=== PATIENT | female | born 1995 | race Caucasian/White ===

== ENCOUNTER 2017-07-03 16:30 | Emergency (ER) | payer OTHER ==
[~2017-07-03] VITALS: Ht 165.1 cm; Wt 90.7 kg
[~2017-07-03 16:30] MED LIST: PRENATAL + DHA1 EAC1 PO
[2017-07-03] MEDS ORDERED: IBUPROFEN200 M1 PO (16:42)
== END 2017-07-03 16:48 | disposition home or self-care (01) ==
LOC: ED 16:30
DX: Z00.8 Encounter for other general examination (principal)

== ENCOUNTER 2021-04-21 10:28 | Emergency (ER) | payer OTHER ==
[~2021-04-21] VITALS: Ht 165.1 cm; Wt 124.3 kg
[~2021-04-21 10:28] MED LIST changes: +IBUPROFEN200 M1 PO
[2021-04-21] MEDS ORDERED: AMOXICILLIN500 MG PO (10:38)
--- OUTSIDE RECORDS SUMMARY | 2021-04-21 10:38 | XMS ---
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 Guidelines Source: [facility] [place] Guidelines Date: 01/29/2020 Care Coordination: Currently seeking mental health services through [facility]. Please contact [facility] for any mental health concerns.\T\nbsp; [place] [phone] [place] [phone] Crisis Line [phone] E.D. VISIT COUNT (12 MO.) 1 [facility] TOTAL 1 NOTE: Visits indicate total known visits. ED/UCC VISIT TRACKING (12 MO.) 04/21/2021 10:28 [facility] [place] TYPE: Emergency COMPLAINT: - SKIN PROBLEM L ARM INPATIENT VISIT TRACKING (12 MO.) No inpatient visits to display in this time frame [email or web address]
[2021-04-21] MEDS ORDERED: CEPHALEXIN500 M1 PO (11:14)
== END 2021-04-21 11:20 | disposition home or self-care (01) ==
LOC: ED 10:28
DX: L02.412 Cutaneous abscess of left axilla (principal); F17.200 Nicotine dependence, unspecified, uncomplicated
CPT/HCPCS: 10060; 99283-25